=== PATIENT | female | born 1975 | race American Indian/Alaskan Native ===

== ENCOUNTER 2016-03-19 04:17 | Inpatient (IN) | payer MEDICAID ==
[2016-03-19 05:09] LABS: Basophils % (Auto) 0.6 % (0.0-1.8); Eosinophils % (Auto) 1.8 % (0.0-4.3); Hemoglobin 12.1 gm/dl (10.1-14.3); Mean Corpuscular HGB Conc 34 % (30-34); Mean Corpuscular Hemoglobin 31 pg (28-32); Mean Corpuscular Volume 93 fl (79-97); Platelet Count 156 K/mm3 (140-440); Red Blood Count 3.89 M/mm3 (3.65-5.03); Red Cell Distribution Width 13.5 % (13.2-15.2); White Blood Count 4.8 K/mm3 (4.5-11.0)
[2016-03-19 05:52] LABS: BUN/Creatinine Ratio 13.33; Blood Urea Nitrogen 8 mg/dL (7-17); Calcium 9.2 mg/dL (8.4-10.2); Carbon Dioxide 29 mmol/L (22-30); Chloride 103.7 mmol/L (98-107); Glucose 102 mg/dL (65-100); Potassium 3.9 mmol/L (3.6-5.0); Sodium 144 mmol/L (137-145)
[2016-03-19 05:53] LABS: Anion Gap 15 mmol/L
[2016-03-19] MEDS ORDERED: ASPIRIN PO ONE (16:10)
[2016-03-19] MEDS ORDERED: ZOFRAN IV ONE (16:10)
[2016-03-19] MEDS ORDERED: NITRO-BID 2% TP ONE (16:10)
[2016-03-19] MEDS ORDERED: MORPHINE IV ONE (16:10)
--- NOTE | 2016-03-19 16:20 | Emergency Department Report ---
HPI - General Chief Complaint: Chest Pain Time Seen by Provider: 03/19/16 15:53 - HPI HPI: Reyes 3 The patient is a 40-year-old female presenting with a chief complaint of chest pain. The patient states last night after lying down she awakened diaphoretic with chest palpitations. The patient states she didn't develop left-sided chest pain that radiated to her left shoulder. Patient states the pain was sharp in nature and she felt short of breath. Patient denies nausea or vomiting. The patient states she got up to go to the shower and felt dizzy. The patient denies any recent flights or long car trips. The patient states the chest pain is improved but is still present. The patient currently gives her pain a score of 5/10. The patient states she's never had a stress test or cardiac catheterization Location: Left chest Duration: Constant since last night Quality: Sharp Severity:5/10 Modifying factors: [see above] Context: [see above] Mode of transportation: [not driving] ED Past Medical Hx - Past Medical History Previous Medical History?: Yes Hx Psychiatric Treatment: Yes (anxiety ) - Surgical History Past Surgical History?: Yes Additional Surgical History: Bilateral Tubal ligation - Family History Family history: no significant - Social History Smoking Status: Former Smoker (none 12 years) Substance Use Type: None (denies illicit drug use), Alcohol (occasional) - Medications Home Medications: Home Medications Medication Instructions Recorded Confirmed Last Taken Type HYDROcodone/APAP 5-325 [[place] 1 each PO Q6HR PRN #10 tablet 09/27/14 11/07/14 Rx 5-325 mg TAB] Ibuprofen [Motrin 800 MG tab] 800 mg PO Q8HR PRN #30 tablet 09/27/14 11/07/14 Rx Famotidine [Pepcid] 20 mg PO BID #28 tablet 11/07/14 Unknown Rx Omeprazole [PriLOSEC] 20 mg PO QDAY #14 capsule. 11/07/14 Unknown Rx ED Review of Systems ROS: Stated complaint: CHEST PAIN, SHORTNESS OF BREATH, DIZZY Other details as noted in HPI Comment: All other systems reviewed and negative Constitutional: diaphoresis Eyes: denies: eye pain, eye discharge, vision change ENT: denies: ear pain, throat pain Respiratory: shortness of breath Cardiovascular: chest pain, palpitations Endocrine: no symptoms reported Gastrointestinal: denies: abdominal pain, nausea, diarrhea Genitourinary: denies: urgency, dysuria, discharge Musculoskeletal: denies: back pain, joint swelling, arthralgia Skin: denies: rash, lesions Neurological: denies: headache, weakness, paresthesias Psychiatric: denies: anxiety, depression Hematological/Lymphatic: denies: easy bleeding, easy bruising Physical Exam - Physical Exam Vital Signs: Vital Signs 03/19/16 04:40 Temperature 97.8 F Pulse Rate 70 Respiratory 20 Rate Blood Pressure 107/74 O2 Sat by Pulse 100 Oximetry Physical Exam: GENERAL: The patient is well-developed well-nourished female lying on stretcher not appearing to be in acute distress HEENT: Normocephalic. Atraumatic. Extraocular motions are intact. Patient has moist mucous membranes. NECK: Supple. Trachea midline CHEST/LUNGS: Clear to auscultation. There is no respiratory distress noted. HEART/CARDIOVASCULAR: Regular. There is no tachycardia. There is no gallop rub or murmur. ABDOMEN: Abdomen is soft, nontender. Patient has normal bowel sounds. There is no abdominal distention. SKIN: There is no rash. There is no edema. There is no diaphoresis. NEURO: The patient is awake, alert, and oriented. The patient is cooperative. The patient has normal speech MUSCULOSKELETAL: There is no evidence of acute injury. ED Course Vital Signs 03/19/16 04:40 Temperature 97.8 F Pulse Rate 70 Respiratory 20 Rate Blood Pressure 107/74 O2 Sat by Pulse 100 Oximetry ED Medical Decision Making - Lab Data Result diagrams: 03/19/16 04:56 03/19/16 04:56 Laboratory Tests 03/19/16 03/19/16 03/19/16 04:56 04:56 07:54 WBC 4.8 RBC 3.89 Hgb 12.1 Hct 36.0 MCV 93 MCH 31 MCHC 34 RDW 13.5 Plt Count 156 Lymph % (Auto) 38.5 H Ware % (Auto) 8.5 H Eos % (Auto) 1.8 Baso % (Auto) 0.6 Lymph # 1.9 Ware # 0.4 Eos # 0.1 Baso # 0.0 Seg Neutrophils % 50.6 Seg Neutrophils # 2.4 Sodium 144 Potassium 3.9 Chloride 103.7 Carbon Dioxide 29 Anion Gap 15 BUN 8 Creatinine 0.6 L Estimated GFR > 60 BUN/Creatinine Ratio 13.33 Glucose 102 H Calcium 9.2 Troponin T < 0.010 < 0.010 03/19/16 10:59 WBC RBC Hgb Hct MCV MCH MCHC RDW Plt Count Lymph % (Auto) Ware % (Auto) Eos % (Auto) Baso % (Auto) Lymph # Ware # Eos # Baso # Seg Neutrophils % Seg Neutrophils # Sodium Potassium Chloride Carbon Dioxide Anion Gap BUN Creatinine Estimated GFR BUN/Creatinine Ratio Glucose Calcium Troponin T < 0.010 - EKG Data -: EKG Interpreted by Me EKG shows normal: sinus rhythm Rate: normal - EKG Data When compared to previous EKG there are: previous EKG unavailable Interpretation: nonspecific ST-T wave davina (T-wave inversion in lead aVL) - Radiology Data Radiology results: image reviewed (chest x-ray) interpreted by me: Chest x-ray-no focal infiltrates, no pneumothorax - Differential Diagnosis ACS, GERD, pericarditis Critical care attestation.: If time is entered above; I have spent that time in minutes in the direct care of this critically ill patient, excluding procedure time. ED Disposition Clinical Impression: Chest pain Disposition: OP ADMITTED IP TO THIS HOSP Is pt being admited?: Yes Does the pt Need Aspirin: Yes Condition: Fair Instructions: Chest Pain (ED) Referrals: PRIMARY CARE, [Primary Care Provider] - 3-5 Days Time of Disposition: 16:38 (hospitalist paged)
--- NOTE | 2016-03-19 16:33 | XRay Report ---
Single view chest: Compared to 11/07/14. History: Chest pain. Findings: Normal cardiomediastinal silhouette. Trachea is midline. No consolidation, pneumothorax or pleural effusion. Impression: No acute cardiopulmonary findings.
--- NOTE | 2016-03-19 17:11 | Admit Criteria Form ---
Admission Criteria Documentation: CARDIOLOGY GRG Clinical Indications for Admission to Inpatient Care ( Place 'X' for any and all applicable criteria): Hospital admission is needed for appropriate care of the patient because of ANY ONE of the following (1): [ ] I. Hemodynamic instability as indicated by ALL of the following (1)(2)(3) (4)(5) [ ]a) Vital signs or other findings not as expected for chronic patient condition or baseline [ ]b) Instability indicated by ANY ONE of the following: [ ]i) Hypotension [ ]ii) Symptomatic Tachycardia unresponsive to treatment ( e.g., analgesia, fluids, sedation as indicated) [ ]iii) Inadequate perfusion indicated by ANY ONE of the following: [ ] 1) Lactic acidosis (> 2 mmol/L) [ ] 2) New abnormal capillary refill (> 3 seconds) [ ] 3) Reduced urine output [ ] 4) New altered mental status [ ]iv) Orthostatic vital sign changes unresponsive to treatment (e.g., fluids) [ ]v) IV inotropic or vasopressor medication required to maintain adequate blood pressure or perfusion [ ] II. Severe heart failure as indicated by ANY ONE of the following(17)(18) [ ]a) Respiratory distress [ ]b) Hypotension [ ]c) Anasarca (refractory to outpatient therapy) [ ]d) Cardiac arrhythmias of immediate concern [ ]e) Myocardial ischemia [ ] III. Cardiac arrhythmias or findings of immediate concern indicated by ANY ONE of the following (19)(20): [ ] a) Heart rhythms that are inherently dangerous or unstable indicated by ANY ONE of the following (21)(22)(23): [ ] i) Resuscitated ventricular fibrillation or cardiac arrest [ ] ii) Ventricular escape rhythm [ ] iii) Sustained ventricular tachycardia (30 seconds or more of ventricular rhythm at greater than 100 beats per minute) [ ] iv) Nonsustained ventricular tachycardia and ANY ONE of the following: [ ] 1) Suspected cardiac ischemia as cause or consequence of ventricular tachycardia [ ] 2) In setting of acute myocarditis [ ] b) Unstable cardiac conduction defects indicated by ANY ONE of the following(23)(24)(25) [ ] i) Type II second-degree atrioventricular block [ ]ii) Third-degree atrioventricular block [ ]iii) New-onset left bundle branch block with suspected myocardial ischemia [ ]c) Any heart rhythm and ANY ONE of the following (21)(22)(26)(27) (28) [ ] i) Continuous long-term ECG monitoring needed (e.g., initiation of drug requiring monitoring for more than 24 hours) [ ] ii) Patient has automatic implanted cardioverter defibrillator that is repeatedly firing, malfunctioning, or in need of immediate adjustment of settings beyond the scope of ambulatory or observation care [ ]d) Heart rhythms of concern due to ANY ONE of the following: [ ] i) Hypotension [ ] ii) Respiratory distress [ ] iii) Association with other significant symptoms (e.g., bradycardia with syncope or ongoing dizziness, supraventricular tachycardia with chest pain (14)(15)(17) [ ] IV. Monitoring for cardiac contusion beyond the scope of observation care needed [A](30)(31)(32) [ ] V. Surgical or device complication (e.g., valve replacement complication , pacemaker dysfunction) (35)(41)(44)(45)(46) [ ] . Inpatient palliative care needed. [B](49) Also use Inpatient Palliative Care Criteria [ ] VII. Nonbacterial thrombotic (marantic) endocarditis (36)(43)(47)(48) [X ] VIII. Cardiology condition, symptom, or finding for which emergency and observation care has failed or are not considered appropriate. [ ] IX. Acute valvular disease requiring inpatient as indicated by ANY ONE of the following (41) [ ]a) Acute valvular regurgitation (42) [ ]b) Noninfectious valvulitis (43) [ ]c) Obstructive valve thrombosis [ ]d) Paravalvular leak [ ]e) Other significant valvular disorder remaining after emergency or observation level of care (as appropriate) [ ]X. Pericardial disease requiring inpatient treatment as indicated by ANY ONE of the following (33)(34)(35)(36)(37) [ ]a) Suspected tamponade (38)(39)(40) [ ]b) Hemopericardium [ ]c) Other significant pericardial disorder remaining after emergency or observation level of care (as appropriate) [ ] XI. Cardiac ischemia beyond scope of emergency and observation care. [ ] XII. Hypertension requiring inpatient treatment as indicated by ANY ONE of the following (6)(7)(8) [ ]a) SBP greater than 220 mm Hg or DBP greater than 120 mmHg despite treatment [ ]b) SBP greater than 140 mm Hg or DBP greater than 100 mm Hg with evidence of acute end organ damage as indicated by ANY ONE of the following [ ] i) Altered mental status [ ] ii) Acute renal failure as indicated by new onset of ANY ONE of the following (9)(10)(11)(12)(13) [ ]1) 3-fold rise in serum creatinine from baseline [ ]2) Serum creatinine greater than 4 mg/dL ( 354 micromoles/L) with acute rise greater than 0.5 mg/dL (44.2 micromoles/L) [ ]3) Reduction of more than 75% in estimated glomerular filtration rate from baseline [ ]4) Estimated glomerular filtration rate less than 35 mL/min/1.73m2 (0.59 mL/sec/1.73m2) in child up to 18 years of age [ ]5) Cessation of urine output indicated by ALL of the following [ ]A. Adequate volume status [ ]B. Inadequate urine output as indicated by ANY ONE of the following [ ]a. Urine output less than 0.3 mL/kg/hr for 24 hours [ ]b. Anuria (urine output less than 0.1 mL/kg/hr) for 12 hours [ ] iii) Aortic dissection [ ] iv) Myocardial Ischemia [ ] v) Left ventricular heart failure [ ]vi) Retinal Hemorrhage [ ]vii) Other significant finding [ ]c) Hypertension in child requiring inpatient treatment as indicated by ALL of the following(14)(15)(16) [ ] i) Outpatient treatment not effective, not available, or not appropriate [ ]ii) SBP or DBP greater than 95th percentile for age [ ]iii) Evidence of acute end organ damage as indicated by ANY ONE of the following [ ]1) Altered mental status [ ]2) Acute renal failure as indicated by new onset of ANY ONE of the following(9)(10)(11)(12)(13) [ ]A. 3-fold rise in serum creatinine from baseline [ ]B. Serum creatinine greater than 4 mg/dL (354 micromoles/L) with acute rise greater than 0.5 mg/dL (44.2 micromoles/L) [ ]C. Reduction of more than 75% in estimated glomerular filtration rate from baseline [ ]D. Estimated glomerular filtration rate less than 35 mL/min/1.73m2 (0.59 mL/sec/1.73m2) in child up to 18 years of age [ ]E. Cessation of urine output indicated by ALL of the following [ ]a. Adequate volume status [ ]b. Inadequate urine output as indicated by ANY ONE of the following [ ]i) Urine output less than 0.3 mL/kg/hr for 24 hours [ ]ii) Anuria ( urine output less than 0.1 mL/kg/hr) for 12 hours [ ]3) Severe headache [ ]4) Visual disturbance [ ]5) Retinal hemorrhage [ ]6) Other significant finding [ ]XIII. Complications of transplanted heart indicated by ANY ONE of the following(61): [ ]a) Acute graft rejection requiring inpatient management (eg, intravenous immunosuppression)(62)(63) [ ]b) Acute graft heart failure indicated by ANY ONE of the following(64): [ ]i) Hemodynamic instability [ ]ii) Cardiac arrhythmias of immediate concern [ ]iii) Pulmonary edema that is very severe (eg, mechanical ventilation needed, imminent or likely, need for 100% oxygen to keep oxygen saturation above 90%) [ ]iv) Pulmonary edema that is persistent as indicated by ALL of the following: [ ]1) New need for oxygen therapy to keep oxygen saturation above 90% (or increased FiO2 need from baseline) [ ]2) Has not improved sufficiently with emergency department or observation care IV diuretics or other heart failure treatments[E] [ ]v) Altered mental status that is severe or persistent [ ]vi) Increased creatinine (new on laboratory test) with reduction of more than 50% in estimated glomerular filtration rate from baseline [ ]vii) Progressively (ongoing) rising creatinine (known from past laboratory test) with reduction of more than 25% in estimated glomerular filtration rate from baseline [ ]viii) Acute renal failure [ ]ix) Acute peripheral ischemia (eg, examination shows pulseless, cool, mottled, or cyanotic extremity) [ ]x) Pulmonary artery catheter monitoring needed [ ]xi) Other sign or symptom of heart failure requiring inpatient treatment (ie, too severe or not responsive to outpatient and observation care treatment) [ ]c) Infection requiring inpatient management (eg, Hemodynamic instability, need for intravenous antimicrobial treatment)(66)(67)(68)(69)(70) [ ]d) Cardiac allograft vasculopathy requiring inpatient management ( eg evidence of cardiac ischemia)(71) [ ]e) Other complication of transplanted heart (eg, stroke, severe pulmonary hypertension, severe valvular dysfunction) requiring inpatient management(72) The original [facility] [employer] content created by [employer] has been revised. The portions of the content which have been revised are identified through the use of italic text or in bold, and [facility] has neither reviewed nor approved the modified material. All other unmodified content is copyright [facility] [employer]. Please see references footnoted in the original [facility] [employer] edition 2016 Admission Criteria Met: Yes
[2016-03-19] MEDS ORDERED: ZOFRAN IV PRN (17:57)
[2016-03-19] MEDS ORDERED: NORCO 5/325 PO PRN (17:57)
[2016-03-19] MEDS ORDERED: TYLENOL PO PRN (17:57)
--- NOTE | 2016-03-19 17:59 | History and Physical Report ---
History of Present Illness Date of examination: 03/19/16 Chief complaint: Chest pain History of present illness: Patient 40-year-old woman without chronic medical problems presents with sudden onset of left-sided dull achy moderate nonradiating intermittent chest pain rule out any aggravating or relieving factors. She has shortness of breath headaches or palpitations. Past History Past Medical History: No medical history Past Surgical History: No surgical history Social history: full code. denies: smoking, alcohol abuse, prescription drug abuse, IV drug use Family history: hypertension (grandmother) Medications and Allergies Allergies Allergy/AdvReac Type Severity Reaction Status Date / Time No Known Allergies Allergy Verified 09/27/14 15:50 Home Medications Medication Instructions Recorded Confirmed Last Taken Type HYDROcodone/APAP 5-325 [[place] 1 each PO Q6HR PRN #10 tablet 09/27/14 11/07/14 Rx 5-325 mg TAB] Ibuprofen [Motrin 800 MG tab] 800 mg PO Q8HR PRN #30 tablet 09/27/14 11/07/14 Rx Famotidine [Pepcid] 20 mg PO BID #28 tablet 11/07/14 Unknown Rx Omeprazole [PriLOSEC] 20 mg PO QDAY #14 capsule. 11/07/14 Unknown Rx Review of Systems All systems: negative (as HPI and all other ROS reviewed and negative.) Exam - Physical Exam Narrative exam: GEN: WDWN, NAD, AWAKE, ALERT, ORIENTATED 3 HEENT: NCAT, PERRL, EOMI, OP CLEAR NECK: SUPPLE, NO THYROMEGALY, NO JVD, NO LAD CVS: RRR, NORMAL S1S2 LUNGS/CHEST: CTA B, NORMAL CHEST EXPANSION B, GOOD AIR ENTRY B ABD: SOFT NTND, GBS, NO REBOUND OR GUARDING EXT/SKIN: NO SIGNIFICANT EDEMA OR RASH MSK: FROM X 4 EXTREMITIES NEURO: CN 2-12 GROSSLY INTACT, NO FOCAL DEFICITS PSY: CALM - Constitutional Vitals: Temp Pulse Resp BP Pulse Ox 97.8 F 66 18 115/65 100 03/19/16 04:40 03/19/16 17:24 03/19/16 17:24 03/19/16 17:24 03/19/16 17:24 Results - Labs CBC & Chem 7: 03/19/16 04:56 03/19/16 04:56 Labs: Abnormal lab results 03/19/16 03/19/16 Range/Units 04:56 04:56 Lymph % (Auto) 38.5 H (13.4-35.0) % [place] % (Auto) 8.5 H (0.0-7.3) % Creatinine 0.6 L (0.7-1.2) mg/dL Glucose 102 H (65-100) mg/dL - Imaging and Cardiology EKG: image reviewed Assessment and Plan Patient 40-year-old woman without chronic medical problems who presents with sudden onset of left-sided dull achy moderate nonradiating intermittent chest pain rule without any aggravating or relieving factors that started yesterday. She has shortness of breath headaches or palpitations. -CP: serial ce/troponin, followup EKG, stress test in am
[2016-03-19 18:54] LABS: Creatine Kinase MB 1.2 ng/mL (0.0-4.0)
[2016-03-19 18:55] LABS: Creatine Kinase 87 units/L (30-135)
[2016-03-20 02:55] LABS: Hematocrit 32.9 % (30.3-42.9); Hemoglobin 11.1 gm/dl (10.1-14.3); Mean Corpuscular HGB Conc 34 % (30-34); Mean Corpuscular Hemoglobin 31 pg (28-32); Mean Corpuscular Volume 93 fl (79-97); Platelet Count 144 K/mm3 (140-440); Red Blood Count 3.55 M/mm3 (3.65-5.03); Red Cell Distribution Width 13.9 % (13.2-15.2); White Blood Count 5.7 K/mm3 (4.5-11.0)
[2016-03-20 02:59] LABS: BUN/Creatinine Ratio 16.66; Blood Urea Nitrogen 10 mg/dL (7-17); Calcium 8.5 mg/dL (8.4-10.2); Carbon Dioxide 26 mmol/L (22-30); Chloride 107.3 mmol/L (98-107); Glucose 96 mg/dL (65-100); Potassium 3.9 mmol/L (3.6-5.0); Sodium 144 mmol/L (137-145)
[2016-03-20 03:03] LABS: Creatine Kinase 86 units/L (30-135)
[2016-03-20 03:04] LABS: Creatine Kinase MB < 1.0 ng/mL (0.0-4.0)
[2016-03-20 03:05] LABS: Anion Gap 15 mmol/L
--- NOTE | 2016-03-20 15:36 | Discharge Summary ---
Providers - Providers Date of Admission: 03/19/16 16:51 Attending physician: CECILLE NOVA Primary care physician: [employer] OPERATOR Hospitalization Condition: Fair Hospital course: 40 YO Female admitted for atypical chest pain. Pt treated IAW chest pain protocol. serial cardiac enzymes, ekg, and telemetry monitoring were unremarkable for ischemia. CTA chest was negative for PE. Pt symptoms resolved with supportive care and PPI therapy. Pt convalesced well during hospital course. Pt evaluated prior to discharge but no significant new physical exam findings since admission. Pt medically optimized. Pt subsequently discharged home and instructed to f/u pcp 1wk. 32 minutes dedicated to patient discharge and education. Disposition: DISCHARGED TO HOME OR SELFCARE - Discharge Diagnoses (1) GERD (gastroesophageal reflux disease) Status: Acute Qualifiers: Esophagitis presence: E (2) Chest pain Status: Acute Qualifiers: Chest pain type: C Core Measure Documentation - Palliative Care Palliative Care/ Comfort Measures: Not Applicable - Core Measures Any of the following diagnoses?: none Exam - Constitutional Vitals: Temp Pulse Resp BP Pulse Ox 98.1 F 80 20 99/57 99 03/19/16 23:51 03/19/16 23:51 03/19/16 23:51 03/19/16 23:51 03/20/16 13:31 General appearance: Present: no acute distress, well-nourished - EENT Eyes: Present: PERRL ENT: hearing intact, clear oral mucosa - Neck Neck: Present: supple, normal ROM - Respiratory Respiratory effort: normal Respiratory: bilateral: CTA - Cardiovascular Heart Sounds: Present: S1 & S2. Absent: rub, click - Extremities Extremities: pulses symmetrical, No edema Peripheral Pulses: within normal limits - Abdominal General gastrointestinal: Present: soft, non-tender, non-distended, normal bowel sounds Female genitourinary: Present: normal - Integumentary Integumentary: Present: clear, warm, dry - Musculoskeletal Musculoskeletal: gait normal, strength equal bilaterally - Psychiatric Psychiatric: appropriate mood/affect, intact judgment & insight - Neurologic Neurologic: CNII-XII intact, moves all extremities Plan Activity: advance as tolerated Follow up with: [facility] [Provider Group] - 7 Days PRIMARY CARE, [Primary Care Provider] - 3-5 Days Prescriptions: Pantoprazole [Protonix TAB] 20 mg PO QDAY #30 tablet.
--- NOTE | 2016-03-20 20:04 | Event Note ---
Date: 03/20/16 Nurse called me at 8pm to say that the d dimer is elevated and patient has d/c order by Dr. Abbasi. I ordered CTA chest to rule out pe, low pre-test probability from yesterday, so I will not start on anticoagulation. Held Discharge home, Dr. Abbasi to follow up tomorrow.
--- NOTE | 2016-03-20 21:26 | Cat Scan Report ---
FINAL REPORT EXAM: CT ANGIO CHEST HISTORY: chest pain rule out PE TECHNIQUE: Enhanced CT of the chest at 2.5 mm axial intervals following a pulmonary embolism protocol. Coronal and sagittal imaging were also obtained. Oblique coronal MIP images were obtained. Contrast: 100 ml of Omnipaque 350 given IV. PRIORS: None. FINDINGS: There is no evidence for pulmonary embolism in the main pulmonary artery, right and left pulmonary arteries or their major distributions. However, CT does not exclude distal pulmonary emboli. Mild linear atelectasis in the right middle lobe is seen. Otherwise, the lung parenchyma are expanded and clear with no evidence for parenchymal nodules, infiltrates, congestion, or pleural effusion. There is no evidence for mediastinal, hilar, or axillary adenopathy. Residual thymus is present in the anterior mediastinum. Cardiovascular structures are within normal limits. Images through the lung bases include the upper abdomen which show no abnormalities of the visualized abdominal viscera. Bony structures demonstrate no focal abnormalities. IMPRESSION: No evidence for pulmonary embolism. Mild linear atelectasis in the right middle lobe. Otherwise, negative exam.
[2016-03-21 04:52] VITALS: BP 113/73
[2016-03-21] MEDS: PROTONIX PO SCH ×2 (07:49→10:25)
--- NOTE | 2016-03-21 11:45 | Query- Chest Pain ---
Isaiah Shaw____Wise Date: 03/21/2016 [employer] Setting Machine Operator/CDS: Deannebert wilkinson Phone#:____[phone] Exercise your independent professional judgment when responding to query. Questions asked do not imply a particular answer is desired or expected. We greatly appreciate your clarification on this issue. Clinical Documentation States: 40 year old female was admitted on 03/19/16. The patient was diagnosed with chest pain. The H&P states " sudden onset of left - sided dull achy moderate nonradiating intermittent chest pain. She has shortness of breath " Clinical Findings Show: CT angio chest report: Impression: No evidence for PE. Mild linear atelectasis in the right middle lobe. Please document the etiology of Chest Pain: [ ] Myocardial Infarction [ ] Pneumonia [ ] Mediastinitis [ ] Costochondritis [ ] Pulmonary Embolism [ ] Coronary Artery Disease [ ] GERD [ ] Other: [ x] Comment/Explanation:___defer to Dr. Abbasi's discharge note [ ] Not applicable Present on Admission: [x ] Yes (Y) [ ] Clinically undeterminable (W) [ ] No(N) Please document response in your Progress Notes and/or Discharge Summary and indicate if the condition was present on admission. CORTNEY
--- NOTE | 2016-03-28 15:35 | Query- Chest Pain ---
Isaiah Velarde_KAMRAN Date:___03/28/2016 Peanut Sheller/CDS:___Fausto Shah Phone#: Exercise your independent professional judgment when responding to query. Questions asked do not imply a particular answer is desired or expected. We greatly appreciate your clarification on this issue. Clinical Documentation States: 40 years old female was admitted on 03/19/16. The patient was diagnosed with chest pain. The H&P states "sudden onset of left-sided dull achy moderate nonradiating intermittent chest pain. She was shortness of breath". Clinical Findings Show: CT angio chest report: Impression: No evidence for PE. Mild linear atelectasis in the right middle lobe. Please document the etiology of Chest Pain: [ ] Myocardial Infarction [ ] Pneumonia [ ] Mediastinitis [ ] Costochondritis [ ] Pulmonary Embolism [ ] Coronary Artery Disease [x ] GERD [ ] Other: [ ] Comment/Explanation: Present on Admission: [ x] Yes (Y) [ ] Clinically undeterminable (W) [ ] No(N) Please document response in your Progress Notes and/or Discharge Summary and indicate if the condition was present on admission. JOSE ROBERTOD
== END 2016-03-21 11:29 | disposition home or self-care (01) | DRG 392 ==
LOC: ED 04:17 → 4A 16:51
PROVIDERS: ADMIT Internal Medicine; ATTEND Internal Medicine
DX: K21.9 Gastro-esophageal reflux disease without esophagitis (principal); F41.9 Anxiety disorder, unspecified; Z98.51 Tubal ligation status; Z87.891 Personal history of nicotine dependence; Z79.899 Other long term (current) drug therapy; Z82.49 Family history of ischemic heart disease and other diseases of the circulatory system
CPT/HCPCS: 36415; 71010; 71275; 80048; 82550; 82553; 84484; 85025; 85027; 85379; 93005; 93010; 96374; 96375; J2270; J2405; Q9967

== ENCOUNTER 2017-03-24 19:00 | Emergency (ER) | payer MEDICAID ==
[2017-03-24 20:24] VITALS: BP 120/72
[2017-03-25] MEDS ORDERED: MOTRIN PO ONE (01:14)
--- NOTE | 2017-03-25 01:14 | Emergency Department Report ---
Minor Respiratory - HPI Chief Complaint: Upper Respiratory Infection Stated Complaint: FLU LIKE SYMPTOMS Time Seen by Provider: 03/25/17 01:33 Duration: 2 Days Pain Location: Other (flulike symptoms to include cough, nasal congestion and runny nose.) Minor Respiratory: Yes Rhinorrhea (nasal congestion), Yes Able to Tolerate Fluids, Yes Cough (dry cough), Yes Sick Contacts, No Sore Throat, No Ear Pain, No Hemoptysis, No Chest Pain, No Shortness of Breath, No Fever Other History: patient here report cough, nasal congestion that started 2 days ago.. Denies any chest pain or shortness of breath. Denies any fever or chills. Yend-gcs-nrtsaux cough and cold medicine not helping. Last menstrual period 03/24/2017. Denies any abdominal back pain. Denies any urinary burning frequency urgency. Pain at present is 2 out of 10 generalized achy. Denies any nausea or vomiting. ED Review of Systems ROS: Stated complaint: FLU LIKE SYMPTOMS Other details as noted in HPI Comment: All other systems reviewed and negative Constitutional: no symptoms reported Eyes: denies: eye pain, eye discharge ENT: congestion. denies: ear pain, throat pain, dental pain Respiratory: cough. denies: orthopnea, shortness of breath, SOB with exertion, SOB at rest, stridor, wheezing Cardiovascular: denies: chest pain, palpitations, dyspnea on exertion, orthopnea , edema, syncope, paroxysmal nocturnal dyspnea Gastrointestinal: denies: abdominal pain, nausea, vomiting, diarrhea Genitourinary: denies: urgency, dysuria, frequency, hematuria Musculoskeletal: denies: back pain, joint swelling, arthralgia, myalgia Skin: denies: rash Neurological: denies: headache, numbness, paresthesias, abnormal gait, vertigo ED Past Medical Hx - Past Medical History Previous Medical History?: Yes Hx GERD: Yes Hx Psychiatric Treatment: Yes (anxiety ) - Surgical History Past Surgical History?: Yes Additional Surgical History: Bilateral Tubal ligation 2005 - Family History Family history: no significant - Social History Smoking Status: Former Smoker Substance Use Type: Alcohol - Medications Home Medications: Home Medications Medication Instructions Recorded Confirmed Last Taken Type Pantoprazole [Protonix TAB] 20 mg PO QDAY #30 tablet. 03/20/16 Unknown Rx Cetirizine HCl [ZyrTEC] 10 mg PO QDAY #10 capsule 03/25/17 Unknown Rx Fluticasone [Flonase] 1 spray NS QDAY 10 Days #1 bottle 03/25/17 Unknown Rx guaiFENesin/CODEINE [Robitussin AC] 10 ml PO QHS PRN #50 oral.liqd 03/25/17 Unknown Rx Minor Respiratory Exam - Exam General: Vital signs noted. No distress. Alert and acting appropriately. This is a 41-year-old female well-nourished well-developed in no acute distress. HEENT: Yes Moist Mucous Membranes (uvula midline, no peritonsillar abscess and oral airways patent), Yes Rhinorrhea (congested, erythema with clear drainage), No Pharyngeal Erythema, No Pharyngeal Exudates, No Conjuctival Injection, No Frontal Tenderness, No Maxillary Tenderness Ear: Neither TM Bulge (bilateral TM congested), Neither TM Erythema, Neither EAC Pain, Neither EAC Discharge Neck: Yes Supple (full range of motion and no C-spine tenderness), No Adenopathy Lungs: Yes Good Air Exchange, Yes Cough (dry cough), No Wheezes, No Ronchi, No Stridor, No Labored Respirations, No Retractions, No Use of Accessory Muscles, No Other Abnormal Lung Sounds Heart: Yes Regular (S1, S2. Regular rate and rhythm.), No Murmur Abdomen: Yes Tenderness (soft, nontender to palpation in all quadrants, no guarding or rebound tenderness), Yes Normal Bowel Sounds, No Peritoneal Signs Skin: No Rash, No Edema Neurologic: Alert and oriented, no deficits. Alert and oriented 3 and GCS of 15. Speech is clear. Normal gait Musculoskeletal: Unremarkable. Extremity: No clubbing,cyanosis or edema. +2 pulses to all extremities and no neurovascular compromise ED Course Vital Signs 03/24/17 20:20 Temperature 98.3 F Pulse Rate 98 H Blood Pressure 120/72 O2 Sat by Pulse 98 Oximetry Vital Signs 03/24/17 03/25/17 20:20 03:37 Temperature 98.3 F Pulse Rate 98 H 84 Respiratory 16 Rate Blood Pressure 120/72 O2 Sat by Pulse 98 99 Oximetry - Reevaluation(s) Reevaluation #1: 03/25/17 03:38 Patient had an uneventful ED stay. She received Motrin 800 mg later in ED stay because she said she developed a headache from way then. Headache has been relieved. She is able to tolerate oral liquids without any difficulties. ED Medical Decision Making - Medical Decision Making ED course: Patient here with complaint of flulike symptoms with cough and nasal congestion. She remains afebrile in the emergency room and vital signs are normal. Patient complain of headache later on in the ED stay and receive Motrin 800 mg by mouth with relief of headache. She was able to tolerate several cups of apple juice without any nausea or vomiting. I discussed diagnosis and treatment plan the patient and she is in agreement. Patient with upper respiratory infection with cough and congestion which is viral in nature. Patient discharged home with prescription for guaifenesin with codeine, Zyrtec and Flonase. Critical care attestation.: If time is entered above; I have spent that time in minutes in the direct care of this critically ill patient, excluding procedure time. ED Disposition Clinical Impression: Upper respiratory infection with cough and congestion Disposition: DC- TO HOME OR SELFCARE Is pt being admited?: No Does the pt Need Aspirin: No Condition: Stable Instructions: Upper Respiratory Infection (ED), Acute Cough (ED) Additional Instructions: Please increase her fluid intake Flush nostrils with saline nasal spray take antibiotic as prescribed F/U with primary care physician as instructed and if he do not have a primary care physician follow-up at [facility] Please do not drive or operate heavy machinery while taking cough medicine as this medication causes drowsiness Prescriptions: guaiFENesin/CODEINE [Robitussin AC] 10 ml PO QHS PRN #50 oral.liqd PRN Reason: Cough Cetirizine HCl [ZyrTEC] 10 mg PO QDAY #10 capsule Fluticasone [Flonase] 1 spray NS QDAY 10 Days #1 bottle Referrals: PRIMARY CARE, [Primary Care Provider] - 2-3 Days [facility] [Outside] - 2-3 Days Forms: Work/School Release Form(ED), Accompanied Note
== END 2017-03-25 04:00 | disposition home or self-care (01) ==
LOC: ED 19:00
DX: J06.9 Acute upper respiratory infection, unspecified (principal); K21.9 Gastro-esophageal reflux disease without esophagitis; F41.9 Anxiety disorder, unspecified; Z87.891 Personal history of nicotine dependence
CPT/HCPCS: 99282

== ENCOUNTER 2019-02-13 11:43 | Emergency (ER) | payer MEDICAID ==
[2019-02-13] MEDS ORDERED: ACETAMINOPHEN 500 MG TAB PO ONE (11:54)
--- NOTE | 2019-02-13 15:59 | Emergency Department Report ---
<JERILYN YOUNGBLOOD - Last Filed: 02/13/19 20:18> - General Chief Complaint: Upper Respiratory Infection Stated Complaint: FLU LIKE SYM/BODY SORE Time Seen by Provider: 02/13/19 15:49 - Related Data Previous Rx's Medication Instructions Recorded Last Taken Type Pantoprazole [Protonix TAB] 20 mg PO QDAY #30 tablet. 03/20/16 Unknown Rx Cetirizine HCl [ZyrTEC] 10 mg PO QDAY #10 capsule 03/25/17 Unknown Rx Fluticasone [Flonase] 1 spray NS QDAY 10 Days #1 bottle 03/25/17 Unknown Rx guaiFENesin/CODEINE [Robitussin AC] 10 ml PO QHS PRN #50 oral.liqd 03/25/17 Unknown Rx Oseltamivir [Tamiflu] 75 mg PO BID 5 Days #10 cap 02/13/19 Unknown Rx Allergies Allergy/AdvReac Type Severity Reaction Status Date / Time No Known Allergies Allergy Verified 09/27/14 15:50 ED Past Medical Hx - Medications Home Medications: Home Medications Medication Instructions Recorded Confirmed Last Taken Type Pantoprazole [Protonix TAB] 20 mg PO QDAY #30 tablet. 03/20/16 Unknown Rx Cetirizine HCl [ZyrTEC] 10 mg PO QDAY #10 capsule 03/25/17 Unknown Rx Fluticasone [Flonase] 1 spray NS QDAY 10 Days #1 bottle 03/25/17 Unknown Rx guaiFENesin/CODEINE [Robitussin AC] 10 ml PO QHS PRN #50 oral.liqd 03/25/17 Unknown Rx Oseltamivir [Tamiflu] 75 mg PO BID 5 Days #10 cap 02/13/19 Unknown Rx ED Disposition Clinical Impression: Flu-like symptoms Disposition: DC-01 TO HOME OR SELFCARE Is pt being admited?: No Does the pt Need Aspirin: No Condition: Stable Instructions: Viral Syndrome (ED) Additional Instructions: Urine is negative for any infection. Negative test. Please take Tamiflu as prescribed. Please do supportive measures such as cough medication golz-sqi-hjxtjei cold and sinus. Increase her fluid intake. Prescriptions: Oseltamivir [Tamiflu] 75 mg PO BID 5 Days #10 cap Referrals: PRIMARY CARE, [Primary Care Provider] - 3-5 Days Forms: Work/School Release Form(ED) <AMA KANG - Last Filed: 02/14/19 09:23> - General Source: patient Mode of arrival: Ambulatory Limitations: No Limitations - History of Present Illness Initial Comments: 43 yo female c/o sudden onset of bodyaches, chills, fever and dry cough. Symptoms started last night. No known sick contacts. Denies chest pain , sob n/v. Non-smoker denies PMH MD Complaint: fever, cough Severity: moderate Severity scale (0 -10): 4 Quality: aching Consistency: constant Improves With: nothing, OTC cold medicine Worsens With: nothing Associated Symptoms: fever, chills, myalgias, cough. denies: diaphoresis, stiff neck, chest pain, shortness of breath, abdominal pain, nausea, vomiting, diarrhea, dysuria, rash, confusion, right sweats, weight loss, epistaxis Treatments Prior to Arrival: "cold medicine" ED Review of Systems ROS: Stated complaint: FLU LIKE SYM/BODY SORE Other details as noted in HPI Comment: All other systems reviewed and negative Constitutional: no symptoms reported Eyes: denies: eye pain, eye discharge ENT: denies: ear pain, throat pain, dental pain Respiratory: cough. denies: shortness of breath, SOB with exertion, wheezing Cardiovascular: denies: chest pain, palpitations Gastrointestinal: denies: abdominal pain, nausea Genitourinary: denies: dysuria Skin: denies: rash Neurological: headache ED Past Medical Hx - Past Medical History Previous Medical History?: Yes Hx GERD: Yes Hx Psychiatric Treatment: Yes (anxiety ) - Surgical History Past Surgical History?: No Additional Surgical History: Bilateral Tubal ligation 2005 - Social History Smoking Status: Never Smoker ED Physical Exam - General Limitations: No Limitations General appearance: alert, in no apparent distress - Head Head exam: Present: atraumatic, normal inspection - Eye Eye exam: Present: normal appearance - ENT ENT exam: Present: normal exam, normal orophraynx, mucous membranes moist, TM's normal bilaterally - Neck Neck exam: Present: normal inspection - Respiratory Respiratory exam: Present: normal lung sounds bilaterally. Absent: respiratory distress, wheezes, rales, rhonchi, stridor - Cardiovascular Cardiovascular Exam: Present: regular rate, normal rhythm, normal heart sounds - GI/Abdominal GI/Abdominal exam: Present: soft, distended - Extremities Exam Extremities exam: Present: normal inspection - Back Exam Back exam: Present: normal inspection - Neurological Exam Neurological exam: Present: alert, oriented X3 - Psychiatric Psychiatric exam: Present: normal affect - Skin Skin exam: Present: warm, dry, intact. Absent: rash ED Course Vital Signs 02/13/19 02/13/19 02/13/19 11:52 12:58 17:09 Temperature 100.5 F H 102.7 F H Pulse Rate 86 Respiratory 19 18 Rate Blood Pressure 121/70 Blood Pressure [Right] O2 Sat by Pulse 96 Oximetry 02/13/19 02/13/19 02/13/19 17:53 18:23 22:12 Temperature Pulse Rate 80 Respiratory 18 16 18 Rate Blood Pressure Blood Pressure 131/84 [Right] O2 Sat by Pulse 98 Oximetry ED Medical Decision Making - Medical Decision Making 43 yo female with c/o of dry cough, runny nose chills, back pain. No nausea and vomiting Rapid influenza A & B both negative Urinalysis pending. Care endorsed to Dash GARDNER Critical Care Time: No Critical care attestation.: If time is entered above; I have spent that time in minutes in the direct care of this critically ill patient, excluding procedure time.
[2019-02-13] MEDS ORDERED: KETOROLAC 60 MG/2 ML INJ IM ONE (17:12)
[2019-02-13] MEDS ORDERED: KETOROLAC 30 MG/1 ML INJ IV ONE (17:13)
[2019-02-13] MEDS ORDERED: SODIUM CHLORIDE 0.9% 1000 ML 1,000 ML IV ONE (17:13)
[2019-02-13 19:47] LABS: HCG Qualitative,Urine Negative (Negative)
[2019-02-13 19:49] LABS: Bilirubin,Urine NEG (Negative); Blood,Urine NEG (Negative); Color,Urine Straw (Yellow); Protein,Urine <15 mg/dL mg/dL (Negative); RBC,Urine < 1.0 /HPF (0.0-6.0); Urobilinogen,Urine < 2.0 mg/dL (<2.0)
[2019-02-13 22:15] VITALS: BP 131/84
== END 2019-02-13 21:40 | disposition home or self-care (01) ==
LOC: ED 11:43
DX: J11.1 Influenza due to unidentified influenza virus with other respiratory manifestations (principal); K21.9 Gastro-esophageal reflux disease without esophagitis; F41.9 Anxiety disorder, unspecified; Z98.51 Tubal ligation status
CPT/HCPCS: 81001; 81025; 87400; 96374; 99283; J1885; J7030

== ENCOUNTER 2019-03-08 03:50 | Emergency (ER) | payer MEDICAID ==
[2019-03-08] MEDS ORDERED: ACETAMINOPHEN 325 MG TAB PO ONE (08:32)
--- NOTE | 2019-03-08 08:33 | Emergency Department Report ---
ED General Adult HPI - General Chief complaint: Arrhythmia/Palpitations Stated complaint: RAPID HEARTBEAT Time Seen by Provider: 03/08/19 06:07 Source: patient Mode of arrival: Ambulatory Limitations: No Limitations - History of Present Illness Initial comments: Patient is a 43-year-old female. Patient reports she does not have a local primary care doctor. She takes hydroxyzine for anxiety. She's not sure who prescribed this for her. During the history and physical, I am body worker and escorted by human service technician Anabell Lewis The patient does not take oral contraceptives or control tablets and she reports that she is not . She presents to the ER today with complaint of resolved lightheadedness, feeling like she might pass out, and heart racing/palpitations. This is not accompanied by a sensation of pain. The symptoms are now resolved. The patient does report feeling like she is a little bit "stressed out." She indicates that she is not having any symptoms at the moment. She is asking to eat and drink. Patient also complained of having a dry mouth, and feeling like she was shaky. -: Gradual Severity scale (0 -10): 0 Consistency: now resolved Worsens with: other ("feeling stressed.") - Related Data Previous Rx's Medication Instructions Recorded Last Taken Type Pantoprazole [Protonix TAB] 20 mg PO QDAY #30 tablet. 03/20/16 Unknown Rx Cetirizine HCl [ZyrTEC] 10 mg PO QDAY #10 capsule 03/25/17 Unknown Rx Fluticasone [Flonase] 1 spray NS QDAY 10 Days #1 bottle 03/25/17 Unknown Rx guaiFENesin/CODEINE [Robitussin AC] 10 ml PO QHS PRN #50 oral.liqd 03/25/17 Unk nown Rx Oseltamivir [Tamiflu] 75 mg PO BID 5 Days #10 cap 02/13/19 Unknown Rx Allergies Allergy/AdvReac Type Severity Reaction Status Date / Time No Known Allergies Allergy Verified 09/27/14 15:50 ED Review of Systems ROS: Stated complaint: RAPID HEARTBEAT Other details as noted in HPI Constitutional: denies: fever Eyes: denies: eye discharge ENT: denies: congestion Respiratory: denies: wheezing Cardiovascular: palpitations Gastrointestinal: denies: abdominal pain, vomiting Genitourinary: denies: dysuria Musculoskeletal: denies: back pain Skin: denies: lesions Neurological: weakness Psychiatric: anxiety Hematological/Lymphatic: denies: easy bleeding ED Past Medical Hx - Past Medical History Previous Medical History?: Yes Hx GERD: Yes Hx Psychiatric Treatment: Yes (anxiety ) - Surgical History Past Surgical History?: Yes Additional Surgical History: Bilateral Tubal ligation 2005 - Social History Smoking Status: Never Smoker Substance Use Type: None - Medications Home Medications: Home Medications Medication Instructions Recorded Confirmed Last Taken Type Pantoprazole [Protonix TAB] 20 mg PO QDAY #30 tablet. 03/20/16 Unknown Rx Cetirizine HCl [ZyrTEC] 10 mg PO QDAY #10 capsule 03/25/17 Unknown Rx Fluticasone [Flonase] 1 spray NS QDAY 10 Days #1 bottle 03/25/17 Unknown Rx guaiFENesin/CODEINE [Robitussin AC] 10 ml PO QHS PRN #50 oral.liqd 03/25/17 Unknown Rx Oseltamivir [Tamiflu] 75 mg PO BID 5 Days #10 cap 02/13/19 Unknown Rx ED Physical Exam - General Limitations: No Limitations General appearance: alert, in no apparent distress - Head Head exam: Present: atraumatic, normocephalic - Eye Eye exam: Present: normal appearance, PERRL, EOMI, other (visual acuity intact to finger counting and color perception at a close systems). Absent: nystagmus - ENT ENT exam: Present: normal exam, normal orophraynx, mucous membranes moist, normal external ear exam - Neck Neck exam: Present: normal inspection, full ROM. Absent: tenderness, meni ngismus - Respiratory Respiratory exam: Present: normal lung sounds bilaterally. Absent: respiratory distress - Cardiovascular Cardiovascular Exam: Present: regular rate, normal rhythm, normal heart sounds. Absent: bradycardia, tachycardia, irregular rhythm, systolic murmur, diastolic murmur, rubs, gallop - GI/Abdominal GI/Abdominal exam: Present: soft. Absent: distended, tenderness, guarding, rebound, rigid, pulsatile mass - Extremities Exam Extremities exam: Present: normal inspection, full ROM, other (2+ pulses noted in the bilateral upper and lower extremities. There is no long bony tenderness. The muscular compartments are soft. The pelvis is stable.). Absent: pedal edema, calf tenderness - Back Exam Back exam: Present: normal inspection. Absent: tenderness, CVA tenderness (R), CVA tenderness (L), paraspinal tenderness, vertebral tenderness - Neurological Exam Neurological exam: Present: alert, oriented X3, normal gait, other (there is no past-pointing. There is normal [id number]-[id number]. There is no pronator drift. There is normal gait. Extraocular movements are intact bilaterally. Tongue is midline. Speaking in complete sentences. Normal phonation. V1, V3, V2 intact bilaterally to light touch. 5/5 strength bilateral upper and lower extremities. Sensation is intact to light touch in 4 extremities.). Absent: motor sensory deficit - Psychiatric Psychiatric exam: Present: normal affect, normal mood - Skin Skin exam: Present: warm, dry, intact, normal color. Absent: rash ED Course Vital Signs 03/08/19 03/08/19 03/08/19 03:54 06:04 06:06 Temperature 97.9 F 98.1 F Pulse Rate 69 65 Respiratory 18 20 Rate Blood Pressure 134/71 Blood Pressure 118/71 [Left] O2 Sat by Pulse 100 100 100 Oximetry 03/08/19 03/08/19 03/08/19 07:37 08:39 08:42 Temperature Pulse Rate 60 75 Respiratory 19 16 18 Rate Blood Pressure Blood Pressure 126/77 [Left] O2 Sat by Pulse 98 100 Oximetry 03/08/19 03/08/19 03/08/19 08:45 09:01 09:15 Temperature Pulse Rate 71 67 64 Respiratory 20 20 19 Rate Blood Pressure Blood Pressure [Left] O2 Sat by Pulse 100 100 99 Oximetry ED Medical Decision Making - Lab Data Result diagrams: 03/08/19 08:51 03/08/19 08:51 Vital Signs 03/08/19 03/08/19 03/08/19 03:54 06:04 06:06 Temperature 97.9 F 98.1 F Pulse Rate 69 65 Respiratory 18 20 Rate Blood Pressure 134/71 Blood Pressure 118/71 [Left] O2 Sat by Pulse 100 100 100 Oximetry 03/08/19 03/08/19 03/08/19 07:37 08:39 08:42 Temperature Pulse Rate 60 75 Respiratory 19 16 18 Rate Blood Pressure Blood Pressure 126/77 [Left] O2 Sat by Pulse 98 100 Oximetry 03/08/19 03/08/19 03/08/19 08:45 09:01 09:15 Temperature Pulse Rate 71 67 64 Respiratory 20 20 19 Rate Blood Pressure Blood Pressure [Left] O2 Sat by Pulse 100 100 99 Oximetry Lab Results 03/08/19 03/08/19 03/08/19 Range/Units 08:51 08:51 08:51 WBC 6.3 (4.5-11.0) K/mm3 RBC 3.75 (3.65-5.03) M/mm3 Hgb 11.9 (10.1-14.3) gm/dl Hct 34.9 (30.3-42.9) % MCV 93 (79-97) fl MCH 32 (28-32) pg MCHC 34 (30-34) % RDW 13.2 (13.2-15.2) % Plt Count 137 L (140-440) K/mm3 PT 14.5 (12.2-14.9) Sec. INR 1.11 (0.87-1.13) Sodium 141 (137-145) mmol/L Potassium 3.7 (3.6-5.0) mmol/L Chloride 105.4 (98-107) mmol/L Carbon Dioxide 22 (22-30) mmol/L Anion Gap 17 mmol/L BUN 8 (7-17) mg/dL Creatinine 0.7 (0.7-1.2) mg/dL Estimated GFR > 60 ml/min BUN/Creatinine Ratio 11 % Glucose 112 H (65-100) mg/dL Calcium 8.9 (8.4-10.2) mg/dL Magnesium 1.70 (1.7-2.3) mg/dL Total Creatine Kinase 105 (30-135) units/L TSH (0.270-4.200) mlU/mL HCG, Quant (0-4) mIU/mL 03/08/19 03/08/19 Range/Units 08:51 08:51 WBC (4.5-11.0) K/mm3 RBC (3.65-5.03) M/mm3 Hgb (10.1-14.3) gm/dl Hct (30.3-42.9) % MCV (79-97) fl MCH (28-32) pg MCHC (30-34) % RDW (13.2-15.2) % Plt Count (140-440) K/mm3 PT (12.2-14.9) Sec. INR (0.87-1.13) Sodium (137-145) mmol/L Potassium (3.6-5.0) mmol/L Chloride (98-107) mmol/L Carbon Dioxide (22-30) mmol/L Anion Gap mmol/L BUN (7-17) mg/dL Creatinine (0.7-1.2) mg/dL Estimated GFR ml/min BUN/Creatinine Ratio % Glucose (65-100) mg/dL Calcium (8.4-10.2) mg/dL Magnesium (1.7-2.3) mg/dL Total Creatine Kinase (30-135) units/L TSH 3.710 (0.270-4.200) mlU/mL HCG, Quant < 2 (0-4) mIU/mL - EKG Data -: EKG Interpreted by Me EKG shows normal: sinus rhythm, axis, intervals, QRS complexes, ST-T waves Rate: normal - EKG Data When compared to previous EKG there are: previous EKG unavailable Interpretation: normal EKG - Medical Decision Making Differential diagnosis, including but not limited to: Anxiety, thyroid derangement, electrolyte derangement, mitral valve prolapse Assessment and plan: 43-year-old female with resolved nonspecific symptoms, including anxiety, palpitations, dry mouth, lightheadedness. She is afebrile with reassuring vital signs, walks with a steady gait, has a GCS of 15, with an NIH score of 0, she is not tachycardic, tachypneic or hypoxic, she has no pulmonary embolism or DVT risk factors, is low risk by well's criteria, and is perc negative Her screening laboratory studies were unremarkable; incidental mild thrombocytopenia can be followed up by an outpatient primary care physician Patient is observed in this department for hours without clinical decompensation. She can follow up with an outpatient primary care doctor or general maintenance technician to determine if mitral valve prolapse is present. Critical care attestation.: If time is entered above; I have spent that time in minutes in the direct care of this critically ill patient, excluding procedure time. ED Disposition Clinical Impression: History of palpitations Disposition: DC- TO HOME OR SELFCARE Is pt being admited?: No Does the pt Need Aspirin: No Condition: Stable Additional Instructions: Rest, avoid heavy lifting, and avoid strenuous physical activities. Drink 4-6 cups of water per day, and avoid consumption of stimulants and intoxicants, such as alcohol, caffeine, and energy drinks. Participate in physical activities as tolerated, make certain that patient is getting 7-8 hours of good quality unin terrupted sleep per night, recommend patient follow-up with an outpatient primary care doctor or general maintenance technician within the next 2-3 weeks. Please return to the emergency room right away with new, worsening, different symptoms, or symptoms not present on the initial emergency room evaluation. Referrals: [facility] [Provider Group] - 3-5 Days [facility] [Provider Group] - 3-[address] [facility] [Provider Group] - 3-5 Days
[2019-03-08 09:13] LABS: Hematocrit 34.9 % (30.3-42.9); Hemoglobin 11.9 gm/dl (10.1-14.3); Mean Corpuscular HGB Conc 34 % (30-34); Mean Corpuscular Volume 93 fl (79-97); Platelet Count 137 K/mm3 (140-440); Red Blood Count 3.75 M/mm3 (3.65-5.03); Red Cell Distribution Width 13.2 % (13.2-15.2)
[2019-03-08 09:24] LABS: INR 1.11 (0.87-1.13)
[2019-03-08 09:59] LABS: BUN/Creatinine Ratio 11; Blood Urea Nitrogen 8 mg/dL (7-17); Calcium 8.9 mg/dL (8.4-10.2); Hemolysis Index 3
[2019-03-08 11:12] VITALS: BP 115/71
== END 2019-03-08 11:11 | disposition home or self-care (01) ==
LOC: ED 03:50
DX: R00.2 Palpitations (principal); K21.9 Gastro-esophageal reflux disease without esophagitis; F41.9 Anxiety disorder, unspecified; Z98.51 Tubal ligation status; Z79.899 Other long term (current) drug therapy
CPT/HCPCS: 36415; 80048; 82550; 83735; 84443; 84702; 85027; 85610; 93005; 93010

== ENCOUNTER 2020-05-03 13:12 | Outpatient (CLI) | payer MEDICAID ==
--- NOTE | 2020-05-03 14:47 | XRay Report ---
ABDOMEN 2 VIEWS INDICATION / CLINICAL INFORMATION: ABDOMINAL PAIN. COMPARISON: None available. FINDINGS: TUBES / LINES: None. BOWEL GAS PATTERN: No significant abnormality. FREE AIR / EXTRALUMINAL GAS: None seen. ADDITIONAL FINDINGS: Fallopian tube occlusion devices are noted in the pelvis. There is a small calcification projecting over the left abdomen at the level of L4. There is an addit ional small oval calcification right abdomen projecting at the level of the L5 transverse process. CHEST: Visualized chest shows no significant abnormality. IMPRESSION: 1. Small calcifications are noted bilaterally at L4 and L5. Is possible these could represent uretera l calculi. This may reveal phleboliths. Signer Name: Mateo Gross MD Signed: 05/03/2020 2:42 PM Workstation Name: [id number]
== END 2020-05-03 13:13 | disposition home or self-care (01) ==
LOC: XRAY 13:12
PROVIDERS: ATTEND Internal Medicine
DX: R10.9 Unspecified abdominal pain (principal); M53.86 Other specified dorsopathies, lumbar region
CPT/HCPCS: 74018

== ENCOUNTER 2021-04-13 11:48 | Outpatient (CLI) | payer MEDICAID ==
--- NOTE | 2021-04-13 14:13 | XRay Report ---
LEFT KNEE 2 VIEWS INDICATION / CLINICAL INFORMATION: PAIN IN LEFT KNEE. COMPARISON: None available. FINDINGS: BONES / JOINT(S): There are minimal degenerative changes involving the medial tibiofemoral joint. The re is no evidence of fracture, subluxation, destructive lesion or joint effusion. SOFT TISSUES: No significant abnormality. ADDITIONAL FINDINGS: None. Signer Name: Nehemias Osorio MD Signed: 04/13/2021 2:09 PM Workstation Name: [id number]
== END 2021-04-13 11:49 | disposition home or self-care (01) ==
LOC: XRAY 11:48
PROVIDERS: ATTEND Internal Medicine
DX: M17.12 Unilateral primary osteoarthritis, left knee (principal)

== ENCOUNTER 2021-07-18 09:30 | Outpatient (CLI) | payer MEDICAID ==
--- NOTE | 2021-07-18 10:08 | XRay Report ---
Right knee 2 views INDICATION: Knee pain FINDINGS: Alignment appears normal. There may be a trace effusion. No acute fracture or dislocation. Signer Name: Chuy Ohara MD Signed: 07/18/2021 10:04 AM Workstation Name: [id number]
== END 2021-07-18 09:31 | disposition home or self-care (01) ==
LOC: XRAY 09:30
PROVIDERS: ATTEND Internal Medicine
DX: M25.561 Pain in right knee (principal)